=== PATIENT | female | born 1990 | race Caucasian/White ===

== ENCOUNTER 2017-02-07 22:41 | Emergency (ER) | payer MEDICAID ==
[~2017-02-07] VITALS: Ht 167.6 cm; Wt 99.1 kg
[2017-02-07 22:47] VITALS: TEMP 97.4
[2017-02-08 00:16] LABS: BASO % 0.3 % (0.0-2.0); EOS % 0.1 % (0-4.0); GRAN # 10.8 (1.4-6.5); GRAN % 82.2 % (42.2-75.2); HEMOGLOBIN 13.2 g/dl (12.5-16.0); LYMPH # 1.7 (1.2-3.4); LYMPH % 12.6 % (20.0-51.0); MEAN CELL VOLUME 89 fl (80.0-100.0); MEAN CORPUSCULAR HEMOGLOBIN 31 pg (27.0-31.0); MEAN CORPUSCULAR HGB CONC 35 g/dl (33.0-37.0); MONO # 0.5 (0.1-0.6); PLATELET COUNT 224 K/mm3 (130-400); RED BLOOD COUNT 4.26 M/mm3 (4.10-5.30); REDCELL DISTRIBUTION WIDTH-CV 12.6 % (11.5-14.5); WHITE BLOOD COUNT 13.1 K/mm3 (4.8-10.8)
[2017-02-08] MEDS ORDERED: ZOFRAN 4MG T4 MG/TAB PO (02:18)
[2017-02-08] MEDS ORDERED: NORCO 325 MG-51 TAB PO (02:18)
[2017-02-08 02:45] VITALS: BP 121/79; PULSE 94
== END 2017-02-08 02:45 | disposition home or self-care (01) ==
LOC: COL.ER 22:41
PROVIDERS: Emergency Medicine
DX: O26.892 Other specified pregnancy related conditions, second trimester (principal); R10.31 Right lower quadrant pain; Z90.49 Acquired absence of other specified parts of digestive tract; Z3A.23 23 weeks gestation of pregnancy
CPT/HCPCS: J1885; J7030

== ENCOUNTER 2017-04-22 22:09 | Emergency (ER) | payer MEDICAID ==
[~2017-04-22] VITALS: Ht 167.6 cm; Wt 100.0 kg
[~2017-04-22 22:09] MED LIST: NORCO 325 MG-51 TAB PO; ZOFRAN 4MG T4 MG/TAB PO
[2017-04-22 22:13] VITALS: BP 120/82; TEMP 98.8
[2017-04-22 22:36] LABS: COLLECTION METHOD CLEAN CATCH
[2017-04-22 22:50] LABS: MUCOUS Present /lpf; PH 6 (5-8); URINE APPEARANCE Clear; URINE BACTERIA Rare /hpf; URINE BILIRUBIN Negative (NEGATIVE); URINE BLOOD 3+ (NEGATIVE); URINE COLOR Yellow; URINE GLUCOSE Negative (NEGATIVE); URINE KETONE Negative (NEGATIVE); URINE LEUKOCYTE ESTERASE 1+ (NEGATIVE); URINE PROTEIN(semi-quant) Negative (NEGATIVE); URINE RBC >50 /hpf
[2017-04-22 23:20] VITALS: PULSE 99
== END 2017-04-22 23:22 | disposition home or self-care (01) ==
LOC: COL.ER 22:09
PROVIDERS: Nurse Practitioner
DX: O9A.213 Injury, poisoning and certain other consequences of external causes complicating pregnancy, third trimester (principal); S30.0XXA Contusion of lower back and pelvis, initial encounter; O99.333 Smoking (tobacco) complicating pregnancy, third trimester; F17.210 Nicotine dependence, cigarettes, uncomplicated; Z3A.34 34 weeks gestation of pregnancy; Z90.49 Acquired absence of other specified parts of digestive tract; W01.0XXA Fall on same level from slipping, tripping and stumbling without subsequent striking against object, initial encounter; Y92.002 Bathroom of unspecified non-institutional (private) residence as the place of occurrence of the external cause

== ENCOUNTER 2017-05-29 01:17 | Emergency (ER) | payer MEDICAID ==
[~2017-05-29] VITALS: Ht 167.6 cm; Wt 104.5 kg
[2017-05-29 02:04] VITALS: BP 117/60; PULSE 107; TEMP 98
[2017-05-29 02:41] VITALS: TEMP 97
[2017-05-29 03:12] LABS: COLLECTION METHOD CLEAN CATCH
[2017-05-29 03:15] LABS: BASO % 0.5 % (0.0-2.0); EOS % 0.5 % (0-4.0); GRAN # 6.1 (1.4-6.5); GRAN % 72.5 % (42.2-75.2); HEMATOCRIT 37.9 % (37.0-47.0); HEMOGLOBIN 12.8 g/dl (12.5-16.0); LYMPH # 1.6 (1.2-3.4); LYMPH % 18.6 % (20.0-51.0); MEAN CELL VOLUME 90 fl (80.0-100.0); MEAN CORPUSCULAR HEMOGLOBIN 30 pg (27.0-31.0); MEAN CORPUSCULAR HGB CONC 34 g/dl (33.0-37.0); MEAN PLATELET VOLUME 9.9 fl (7.4-10.4); MONO # 0.6 (0.1-0.6); MONO % 6.9 % (1.7-9.3); PLATELET COUNT 226 K/mm3 (130-400); RED BLOOD COUNT 4.23 M/mm3 (4.10-5.30); REDCELL DISTRIBUTION WIDTH-CV 13.4 % (11.5-14.5)
[2017-05-29 03:20] LABS: MUCOUS Present /lpf; PH 6 (5-8); URINE APPEARANCE Hazy; URINE BACTERIA Rare /hpf; URINE BILIRUBIN Negative (NEGATIVE); URINE BLOOD 1+ (NEGATIVE); URINE COLOR Yellow; URINE GLUCOSE Negative (NEGATIVE); URINE KETONE Negative (NEGATIVE); URINE LEUKOCYTE ESTERASE 2+ (NEGATIVE); URINE NITRATE Negative (NEGATIVE); URINE PROTEIN(semi-quant) Negative (NEGATIVE); URINE UROBILINOGEN Negative (NEGATIVE)
[2017-05-29 03:26] LABS: ALBUMIN 3.5 gm/dL (3.5-5.0); BILIRUBIN,TOTAL 0.3 mg/dL (0.0-1.0); C-REACTIVE PROTEIN 3.7 mg/dL (0.0-0.9); CALCIUM 8.8 mg/dL (8.4-10.2); CREATININE, serum 0.47 mg/dL (0.52-1.25); POTASSIUM 3.8 mmol/L (3.4-5.0); TOTAL PROTEIN 6.8 gm/dL (6.4-8.2)
[2017-05-29] MEDS ORDERED: MACROBID 1100 MG/CAP PO (04:24)
[2017-05-29 04:41] VITALS: BP 130/87; PULSE 107
== END 2017-05-29 04:44 | disposition home or self-care (01) ==
LOC: LDRO 01:17 → COL.ER 01:17 → EDSTATUS 02:35 → COL.ER 04:44
PROVIDERS: Emergency Medicine
DX: O23.43 Unspecified infection of urinary tract in pregnancy, third trimester (principal); O99.89 Other specified diseases and conditions complicating pregnancy, childbirth and the puerperium; R10.13 Epigastric pain; O99.513 Diseases of the respiratory system complicating pregnancy, third trimester; Z3A.38 38 weeks gestation of pregnancy; J06.9 Acute upper respiratory infection, unspecified; Z90.49 Acquired absence of other specified parts of digestive tract; O99.333 Smoking (tobacco) complicating pregnancy, third trimester; F17.210 Nicotine dependence, cigarettes, uncomplicated; R19.7 Diarrhea, unspecified

== ENCOUNTER 2017-06-02 06:52 | Inpatient (IN) | payer MEDICAID ==
[2017-06-02] VITALS (32 sets, daily range): BP systolic 90–139; BP diastolic 55–87; PULSE 87–126; TEMP 98–99.3
[~2017-06-02] VITALS: Ht 172.7 cm; Wt 107.3 kg
[~2017-06-02 06:52] MED LIST changes: +MACROBID 1100 MG/CAP PO
[2017-06-02 08:08] LABS: BASO % 0.3 % (0.0-2.0); EOS % 0.3 % (0-4.0); GRAN # 6.4 (1.4-6.5); GRAN % 70.1 % (42.2-75.2); HEMATOCRIT 36.3 % (37.0-47.0); HEMOGLOBIN 12.1 g/dl (12.5-16.0); LYMPH % 22.2 % (20.0-51.0); MEAN CELL VOLUME 90 fl (80.0-100.0); MEAN CORPUSCULAR HEMOGLOBIN 30 pg (27.0-31.0); MEAN CORPUSCULAR HGB CONC 33 g/dl (33.0-37.0); MEAN PLATELET VOLUME 10.3 fl (7.4-10.4); MONO # 0.6 (0.1-0.6); MONO % 6.2 % (1.7-9.3); PLATELET COUNT 230 K/mm3 (130-400); RED BLOOD COUNT 4.04 M/mm3 (4.10-5.30); REDCELL DISTRIBUTION WIDTH-CV 13.2 % (11.5-14.5)
[2017-06-03 07:45] VITALS: BP 118/80; PULSE 92; TEMP 97.6
[2017-06-03] MEDS ORDERED: IBU600 MG PO (09:33)
== END 2017-06-03 16:30 | disposition home or self-care (01) | DRG 774 ==
LOC: LDR 06:52 → OB 06:52 → LDR 07:44 → OB 15:00
PROVIDERS: Obstetrics & Gynecology
PROC: 10E0XZZ Delivery of Products of Conception, External Approach (ICD-10-PCS; principal; 2017-06-02)
PROC: 3E033VJ Introduction of Other Hormone into Peripheral Vein, Percutaneous Approach (ICD-10-PCS; 2017-06-02)
DX: O75.89 Other specified complications of labor and delivery (principal); O98.312 Other infections with a predominantly sexual mode of transmission complicating pregnancy, second trimester; O69.1XX0 Labor and delivery complicated by cord around neck, with compression, not applicable or unspecified; A56.02 Chlamydial vulvovaginitis; O99.334 Smoking (tobacco) complicating childbirth; F17.210 Nicotine dependence, cigarettes, uncomplicated; Z3A.39 39 weeks gestation of pregnancy; Z37.0 Single live birth
CPT/HCPCS: J2400; J2590; J2795; J7120

== ENCOUNTER 2018-07-29 17:15 | Emergency (ER) | payer MEDICAID ==
[~2018-07-29] VITALS: Ht 167.6 cm; Wt 101.7 kg
[~2018-07-29 17:15] MED LIST changes: +IBU600 MG PO
[2018-07-29 17:18] VITALS: TEMP 98.3
[2018-07-29 18:45] LABS: BASO % 0.3 % (0.0-2.0); GRAN # 8.5 (1.4-6.5); GRAN % 90.2 % (42.2-75.2); HEMATOCRIT 40.7 % (37.0-47.0); HEMOGLOBIN 13.9 g/dl (12.5-16.0); LYMPH # 0.6 (1.2-3.4); LYMPH % 6.1 % (20.0-51.0); MEAN CELL VOLUME 88 fl (80.0-100.0); MEAN CORPUSCULAR HEMOGLOBIN 30 pg (27.0-31.0); MEAN CORPUSCULAR HGB CONC 34 g/dl (33.0-37.0); MEAN PLATELET VOLUME 10.1 fl (7.4-10.4); MONO # 0.2 (0.1-0.6); MONO % 2.4 % (1.7-9.3); PLATELET COUNT 235 K/mm3 (130-400); RED BLOOD COUNT 4.65 M/mm3 (4.10-5.30)
[2018-07-29 18:59] LABS: ALBUMIN 3.6 gm/dL (3.5-5.0); BILIRUBIN,TOTAL 0.6 mg/dL (0.0-1.0); CALCIUM 8.7 mg/dL (8.4-10.2); CREATININE, serum 0.41 (0.52-1.25); POTASSIUM 3.4 mmol/L (3.4-5.0); TOTAL PROTEIN 7.2 gm/dL (6.4-8.2)
[2018-07-29] MEDS ORDERED: ZOFRAN ODT4 MG PO (19:48)
[2018-07-29 20:42] VITALS: BP 109/75; PULSE 117
== END 2018-07-29 20:45 | disposition home or self-care (01) ==
LOC: COL.ER 17:15
PROVIDERS: Emergency Medicine
DX: O23.92 Unspecified genitourinary tract infection in pregnancy, second trimester (principal); O26.892 Other specified pregnancy related conditions, second trimester; O99.332 Smoking (tobacco) complicating pregnancy, second trimester; R19.7 Diarrhea, unspecified; F17.210 Nicotine dependence, cigarettes, uncomplicated; Z90.89 Acquired absence of other organs; Z3A.23 23 weeks gestation of pregnancy
CPT/HCPCS: J2405; J2550; J7030

== ENCOUNTER 2018-10-07 12:14 | Outpatient (CLI) | payer MEDICAID ==
[~2018-10-07] VITALS: Ht 17.8 cm; Wt 104.5 kg
[~2018-10-07 12:14] MED LIST changes: +ZOFRAN ODT4 MG PO
[2018-10-07] MEDS ORDERED: PRENATAL FORMU1 EAC3 PO (12:34)
[2018-10-07 12:35] VITALS: BP 121/79; PULSE 122; TEMP 98.6
[2018-10-07 12:40] VITALS: BP 121/79; PULSE 122; TEMP 98.6
--- NOTE | 2018-10-07 12:43 | NUR ---
1225 PT PRESENTS, BAREFOOTED AND COMPLAINING OF BLEEDING THIS MORNING. GOWN ON AND TO BED. MONITORS IN PLACE AND ASSESSMENT STARTED.
[2018-10-07 13:45] VITALS: BP 115/70; PULSE 80
--- NOTE | 2018-10-07 14:37 | NUR ---
1245 PLAN OF CARE DISCUSSED WITH PT AND SO. 1250 DR IZAGUIRRE REACHED CELL PHONE AND STATUS REPORT GIVEN. SVE SHOWED NOT BRIGHT RED BLOOD ON GLOVED HAND NOT ANY SIGNS OF BLOOD ON LABIA OR INNER THIGH. ORDERS FOR MONITORIN AND THEN DISHARGE IF STRIP REACTIVE FOR GESTATIONAL AGE. 1300 PLAN OF CARE DISCUSSED WITH PT AND VERBALIZES UNDERSTANDING.
--- NOTE | 2018-10-07 14:40 | NUR ---
1350 NO CHANGE IN PT STATUS. MONITORS OFF AND ALLOWED TO DRESS AND VOID. 1400 HOME CARE INSTRUCTIONS REVIEWED WITH PT AND SO. SLIPPER SOCKS PROVIDED FOR FEET. VERBALIZES UNDERSTANDING OF HOME CARE INSTRUCTIONS. 1410 DISMISSED AMB TO SELF CARE, KNOWS TO RETURN IF SYMPTOMS PERSISTS OR RETURN.
== END 2018-10-07 14:10 | disposition home or self-care (01) ==
LOC: LDRO 12:14 → LDR 12:25 → LDRO 14:10
DX: O46.93 Antepartum hemorrhage, unspecified, third trimester (principal); Z3A.33 33 weeks gestation of pregnancy
CPT/HCPCS: OP

== ENCOUNTER 2018-11-13 02:45 | Outpatient (CLI) | payer MEDICAID ==
[~2018-11-13] VITALS: Ht 165.1 cm; Wt 106.4 kg
[~2018-11-13 02:45] MED LIST changes: +PRENATAL FORMU1 EAC3 PO
--- NOTE | 2018-11-13 02:55 | NUR ---
Pt arrived on unit ambulatory escorted by boyfriend and with complaints of contractions starting this evening. Pt denies any leaking of fluid, vaginal bleeding and reports normal movement. EFM and toco monitors placed. Vital signs WNL. SVE by this RN 2-/2. Labor assessment orders received. Plan of care for labor assessment reviewed with pt.
[2018-11-13 03:02] VITALS: TEMP 98.3
[2018-11-13 04:00] VITALS: BP 130/85; PULSE 107
--- NOTE | 2018-11-13 04:00 | NUR ---
SVE by this RN with no change 2-/-2. Information reviewed with Dr. Jaquez. We discussed ctx spacing out with oral hydration, FHR tracing and SVE reviewed. Orders for discharge home received. Discharged instructions reviewed with pt and and boyfriend at the bedside. Both verbalized an understanding, agreed with the plan and states no questions or concerns at this time.
== END 2018-11-13 04:25 | disposition home or self-care (01) ==
LOC: LDRO 02:45 → LDR 02:45 → LDRO 04:25
DX: O62.9 Abnormality of forces of labor, unspecified (principal); Z3A.38 38 weeks gestation of pregnancy
CPT/HCPCS: OP

== ENCOUNTER 2018-11-18 13:29 | Inpatient (IN) | payer MEDICAID ==
[2018-11-17 22:22] VITALS: BP 165/93; PULSE 113
[2018-11-17 22:23] VITALS: BP 163/76; PULSE 105
[2018-11-18] VITALS (26 sets, daily range): BP systolic 114–177; BP diastolic 60–95; PULSE 99–131; TEMP 97.3–98.9
[~2018-11-18] VITALS: Ht 165.1 cm; Wt 105.0 kg
--- NOTE | 2018-11-18 13:20 | NUR ---
1320-39.1 Ambulatory to TR-1 with complaints of irregular contractions since 0100, denies LOF or VB. Reports Good FM. 1329-Patient on EFM, Assessment complete. 1335-SVE /3. Updated on plan of care.
--- NOTE | 2018-11-18 14:15 | NUR ---
1415-Late variable decel in FHR down to 100bpm wit spontaneous return to baseline. 1426-SVE /-3 with BB. Candy GUZMAN on unit.
--- NOTE | 2018-11-18 14:20 | NUR ---
1420-Dr. Gallo on unit, reviews FHR monitor. Orders to continue to monitor at this time.
--- NOTE | 2018-11-18 14:45 | NUR ---
1445- Reviews FHR monitor. Orders to monitor and recheck at 1530. If no change and continued reactive strip patient may discharge home per Dr. Gallo.
--- NOTE | 2018-11-18 15:35 | NUR ---
1535-SVE 2, Updated Dr. Gallo who remains on unit. Orders to admit patient and plan for AROM. Updated patient on plan of care. Denies questions. 1630-IV to Right hand, blood collected and sent to lab per orders. Ambulated patient to LR 5. Oriented to room.LR per MD orders and protocol. 1641-Patient requests epidural. Dr. Vides who is assuming care of patient notified. Order for epidural obtained. CANDIS Gibbons notified.
[2018-11-18 16:27] LABS: BASO % 0.3 % (0.0-2.0); EOS % 0.2 % (0-4.0); GRAN # 6.8 (1.4-6.5); GRAN % 74.5 % (42.2-75.2); HEMATOCRIT 37.3 % (37.0-47.0); HEMOGLOBIN 12.4 g/dl (12.5-16.0); LYMPH # 1.8 (1.2-3.4); LYMPH % 19.2 % (20.0-51.0); MEAN CELL VOLUME 87 fl (80.0-100.0); MEAN CORPUSCULAR HEMOGLOBIN 29 pg (27.0-31.0); MEAN CORPUSCULAR HGB CONC 33 g/dl (33.0-37.0); MEAN PLATELET VOLUME 9.8 fl (7.4-10.4); MONO # 0.5 (0.1-0.6); MONO % 5.1 % (1.7-9.3); PLATELET COUNT 252 K/mm3 (130-400); RED BLOOD COUNT 4.27 M/mm3 (4.10-5.30); REDCELL DISTRIBUTION WIDTH-CV 13.5 % (11.5-14.5)
--- NOTE | 2018-11-18 16:50 | NUR ---
165-CANDIS Gibbons to patient room. Patient sitting on bedside for epidural placement. 1657-SS administered by CANDIS Gibbons, patient tolerated well, VSS see flow record. Repositoned WL. 172-Kerr to DD, Clear yellow urine return. SVE unchanged. Eliza care provided. Repositioned back WL. 182-Reported off to. Peyton HUDDLESTON.
--- NOTE | 2018-11-18 19:30 | NUR ---
[facility]AN[facility] ROBBIE OSORIO REPORT TO DR SANDOVAL
--- NOTE | 2018-11-18 20:30 | NUR ---
DR BAIG PASTFABIOLA AT BEDSIDE FOR DELIVERY. PT STRONGLY ENC TO PUSH. POOR EFFORT. CONTINUOED COACHING RICARDO HUDDLESTON AND 2036 MALE. TO WARMER PER MOTHER REQUEST
--- NOTE | 2018-11-18 22:40 | NUR ---
UNABLE TO STAND STEADY DUE TO LEG CRAMPS- TO 219 PER WC. SANWICH PROVIDED. BABY IN NSY FOR BATH WHILE TRNSFERING
[2018-11-19 02:00] VITALS: BP 130/84; PULSE 120; TEMP 97.7
--- NOTE | 2018-11-19 03:09 | NUR ---
HR-120. ASYMPTOMATIC.FUNAL CHECK WNL.SMALL CLOTS WHEN UP TO VOID. AMBULATORY WITHOUT DIZZYNESS,STEADYGAIT. INDEPENDENT CARING FOR BABY
[2018-11-19 05:00] VITALS: BP 115/72; PULSE 90; TEMP 98.1
[2018-11-19 07:15] VITALS: BP 116/54; PULSE 89; TEMP 97.6
[2018-11-19 11:10] VITALS: BP 122/76; PULSE 96; TEMP 97.8
[2018-11-19 16:20] VITALS: BP 140/87; PULSE 101; TEMP 97.8
[2018-11-19 20:24] VITALS: BP 135/76; PULSE 100; TEMP 98.2
[2018-11-20 07:15] VITALS: BP 139/84; PULSE 84; TEMP 98.5
[2018-11-20] MEDS ORDERED: IBU800 M1 PO (09:35)
== END 2018-11-20 12:00 | disposition home or self-care (01) | DRG 807 ==
LOC: LDRO 13:29 → LDR 15:45 → OB 22:45
PROVIDERS: ADMIT Obstetrics & Gynecology
PROC: 10E0XZZ Delivery of Products of Conception, External Approach (ICD-10-PCS; principal; 2018-11-18)
PROC: 3E0S3BZ Introduction of Anesthetic Agent into Epidural Space, Percutaneous Approach (ICD-10-PCS; 2018-11-18)
PROC: 10907ZC Drainage of Amniotic Fluid, Therapeutic from Products of Conception, Via Natural or Artificial Opening (ICD-10-PCS; 2018-11-18)
DX: O99.214 Obesity complicating childbirth (principal); Z37.0 Single live birth; E66.9 Obesity, unspecified; O99.334 Smoking (tobacco) complicating childbirth; Z3A.39 39 weeks gestation of pregnancy; O99.344 Other mental disorders complicating childbirth; F32.9 Major depressive disorder, single episode, unspecified; F17.200 Nicotine dependence, unspecified, uncomplicated
CPT/HCPCS: J2590; J2795; J7120

== ENCOUNTER 2019-11-22 03:42 | Inpatient (IN) | payer MEDICAID ==
[2019-11-22] VITALS (26 sets, daily range): BP systolic 130–183; BP diastolic 64–989; PULSE 76–111; TEMP 97.7–98.7
[~2019-11-22] VITALS: Ht 167.6 cm; Wt 106.4 kg
--- NOTE | 2019-11-22 03:35 | NUR ---
G7L4. 38-2. Ambulatory to LDR 4. Clean gown on. EFM and TOCO explained and applied. Pt states she woke up to her water breaking at 0230 and since then there has been "gushes", clear fluid noted. Pt denies contractions. Pt report pink tinged discharge earlier today but no other vaginal bleeding. Reports good movement. Amniotest +. SVE /-2. 0400: notified. See physican notification. Plan of care explained to pt. Pt denies any questions at this time. 0420: IV started and labs obtained via IV site. LR bolus infusing without difficulties. Call light within reach.
[~2019-11-22 03:42] MED LIST changes: +IBU800 M1 PO
[2019-11-22] MEDS ORDERED: PRENATAL MVI PO (03:53)
[2019-11-22 04:45] LABS: BASO % 0.3 % (0.0-2.0); EOS % 0.5 % (0-4.0); GRAN % 68.4 % (42.2-75.2); HEMATOCRIT 33.7 % (37.0-47.0); HEMOGLOBIN 11.1 g/dl (12.5-16.0); LYMPH # 1.8 (1.2-3.4); MEAN CELL VOLUME 87 fl (80.0-100.0); MEAN CORPUSCULAR HEMOGLOBIN 29 pg (27.0-31.0); MEAN CORPUSCULAR HGB CONC 33 g/dl (33.0-37.0); MEAN PLATELET VOLUME 9.9 fl (7.4-10.4); MONO # 0.5 (0.1-0.6); MONO % 6.3 % (1.7-9.3); PLATELET COUNT 239 K/mm3 (130-400); RED BLOOD COUNT 3.88 M/mm3 (4.10-5.30); REDCELL DISTRIBUTION WIDTH-CV 13.9 % (11.5-14.5)
[2019-11-22 05:53] LABS: TRICYCLIC ANTIDEPRESS URINE NEGATIVE
--- NOTE | 2019-11-22 09:05 | NUR ---
PATIENT SITTING AT EDGE OF BED FOR EPIDURAL- TRACING HEART TONES AND MATERNAL PULSE SAME [phone] IZAGUIRRE AT 0905. TO MOTHERS CHEST IN CARE OF CHITO BENNETT RN. DR IZAGUIRRE CUT CORD. PLACENTA SPON DELIVERED AT 0910. PITOCIN AT 333 MLS/ HR. FUNDAL MASSAGE PROVIDED BY DR IZAGUIRRE. PERINEUM INTACT. ICE PACK TO PERINEUM. RECOVERY STARTED AT 0915 WARM BLANKET PROVIDED
--- NOTE | 2019-11-22 14:36 | NUR ---
1115PATIENT VERY SLEEPY AT THIS TIME. PATIENT STATES SHE FEELS LIKE HER LEFT LEG IS STILL NUMB. 1145 PATIENT STATES THAT SHE FEELS THAT HER LEG IS STILL NUMB AND DOESN'T THINK SHE IS ABLE TO WALK. 1215 PATIENT STATES THAT SHE THINKS SHE CAN WALK. PATIENT ATTEMPTED TO STAND AT BEDSIDE WITH ASSISTANCE OF THIS RN AND Narendra FERMIN RN. PATIENT UNABLE TO REMAIN STANDING. PATIENT SAFETLY ASSISTED BACK TO SITTING POSITION IN BED. WILL CONTINUE TO ASSESS. PATIENT STRAIGHT CATH AT THIS TIME. PATIENT TOLERATED WELL.
--- NOTE | 2019-11-22 14:39 | NUR ---
1300 PATIENT VERY TIRED AND NOT WANTING TO ATTEMPT TO WALK. STATES THAT LEG FEELS THE SAME PREVIOUSLY. 1415 PATIENT STATES THAT HER LEGS FEEL MUCH BETTER AND THINKS SHE CAN ATTEMPT TO WALK AGAIN. THIS RN AND Kiera LANDON RN ASSISTED PATIENT. PATIENT ABLE TO MAINTAIN BALANCE AND STATES SHE FEELS GOOD WALKING. PATIENT ASSISTED TO BATHROOM AT THIS TIME.
[2019-11-23 08:30] VITALS: BP 136/89; PULSE 86; TEMP 98.3
[2019-11-23] MEDS ORDERED: IBU600 MG PO (09:29)
--- NOTE | 2019-11-23 10:20 | NUR ---
Initial visit; Mom thanked Engineering Inspection Assistant for offering congratulations and God's blessings for the of her son. Engineering Inspection Assistant thanked patient for choosing [facility].
== END 2019-11-23 13:50 | disposition home or self-care (01) | DRG 807 ==
LOC: LDRO 03:42 → OB 04:07 → LDR 04:07 → OB 14:30
PROVIDERS: ADMIT Student in an Organized Health Care Education/Training Program
PROC: 10E0XZZ Delivery of Products of Conception, External Approach (ICD-10-PCS; principal; 2019-11-22)
DX: O99.214 Obesity complicating childbirth (principal); Z37.0 Single live birth; E66.9 Obesity, unspecified; Z3A.38 38 weeks gestation of pregnancy
CPT/HCPCS: J2590; J2795; J7120

== ENCOUNTER 2020-10-05 01:49 | Outpatient (CLI) | payer MEDICAID ==
[~2020-10-05] VITALS: Ht 170.2 cm; Wt 110.5 kg
[~2020-10-05 01:49] MED LIST changes: +PRENATAL MVI PO
--- NOTE | 2020-10-05 02:00 | NUR ---
0200- patient ambulatory to our unit by herself. patient orientated to room and changed into clean gown. patient report gfm, no ctx, no bleeding and leaking urine when she coughs. patient reports pelvic and back pain when she coughs. 0206- efm and toco on and tracing. vitals taken, assessment completed. 0220-provider publications designer on the unit and discussed patient with her. patient is a and 33.3 today. reports traveling to [place] last week and started coughing a day or so ago. patient is afrebile. provider gave verbal orders to start an IV, give 500 bolus and then 125/hr. draw cbc, cmp, rapid covid swab, ua and then give tessalon pearls and robotussin. if all labs are fine and she has taken her meds and got her fluids patient can go home. if labs are really out of range then give me a call. provider went to publications designer room.
[2020-10-05] MEDS ORDERED: ZOLOFT 25MG25 MG PO (02:20)
[2020-10-05] MEDS ORDERED: CEPHALEXIN500 M1 PO (02:20)
[2020-10-05 03:10] VITALS: BP 119/77; PULSE 133; TEMP 98.9
[2020-10-05 03:15] LABS: BASO % 0.2 % (0.0-2.0); EOS % 0.1 % (0-4.0); GRAN % 78.9 % (42.2-75.2); HEMOGLOBIN 11.4 g/dl (12.5-16.0); LYMPH # 1.1 (1.2-3.4); LYMPH % 12.3 % (20.0-51.0); MEAN CELL VOLUME 85 fl (80.0-100.0); MEAN CORPUSCULAR HEMOGLOBIN 29 pg (27.0-31.0); MEAN CORPUSCULAR HGB CONC 34 g/dl (33.0-37.0); MEAN PLATELET VOLUME 9.7 fl (7.4-10.4); MONO # 0.7 (0.1-0.6); MONO % 7.5 % (1.7-9.3); PLATELET COUNT 265 K/mm3 (130-400); RED BLOOD COUNT 3.96 M/mm3 (4.10-5.30); REDCELL DISTRIBUTION WIDTH-CV 13.2 % (11.5-14.5)
[2020-10-05 03:18] LABS: HEMATOCRIT 33.7 % (37.0-47.0)
[2020-10-05 03:20] LABS: COLLECTION METHOD CLEAN CATCH
[2020-10-05 03:26] LABS: ALBUMIN 3.4 gm/dL (3.5-5.0); BILIRUBIN,TOTAL 0.4 mg/dL (0.0-1.0); CALCIUM 8.6 mg/dL (8.4-10.2); CREATININE, serum 0.43 (0.52-1.25); POTASSIUM 3.2 mmol/L (3.4-5.0); TOTAL PROTEIN 6.9 gm/dL (6.4-8.2)
[2020-10-05 03:30] LABS: MUCOUS Present /lpf; PH 7 (5-8); URINE APPEARANCE Clear; URINE BACTERIA Rare /hpf; URINE BILIRUBIN Negative (NEGATIVE); URINE BLOOD 1+ (NEGATIVE); URINE COLOR Yellow; URINE GLUCOSE Negative (NEGATIVE); URINE KETONE Negative (NEGATIVE); URINE LEUKOCYTE ESTERASE Trace (NEGATIVE); URINE NITRATE Negative (NEGATIVE); URINE PROTEIN(semi-quant) Negative (NEGATIVE); URINE RBC 0-2 /hpf
[2020-10-05 03:56] VITALS: BP 133/82; PULSE 118
== END 2020-10-05 04:05 | disposition home or self-care (01) ==
LOC: LDRO 01:49
PROVIDERS: Obstetrics & Gynecology
DX: O62.9 Abnormality of forces of labor, unspecified (principal); Z3A.33 33 weeks gestation of pregnancy
CPT/HCPCS: J7120

== ENCOUNTER 2020-11-11 20:00 | Outpatient (CLI) | payer MEDICAID ==
[~2020-11-11] VITALS: Ht 170.2 cm; Wt 111.4 kg
[~2020-11-11 20:00] MED LIST changes: +CEPHALEXIN500 M1 PO; +ZOLOFT 25MG25 MG PO
--- NOTE | 2020-11-11 20:10 | NUR ---
Ambulatory to unit for labor assessment, accompanied by spouse. Pt reports cramping and pressure off and on since "about 8 this morning", "a little more about this evening". Denies loss of fluid or vaginal bleeding. Plan of care reviewed with pt. Covid questions asked. has not had vaccines, has not been in contact with known Covid positive, had negative Covid swab < 1 month ago, no Covid symptoms identified. Covid rapid swab obtained. Will continue in isolation until Covid swab results obtained. Pt and spouse verbalize understanding. SVE with no change since office exam 11/05.
[2020-11-11 20:30] VITALS: BP 149/77; PULSE 115; TEMP 98.9
--- NOTE | 2020-11-11 21:20 | NUR ---
off monitor up to void. Will repeat SVE when Covid results come back.
[2020-11-11 21:25] VITALS: BP 136/75; PULSE 111; PULSE 16; TEMP 98.2
--- NOTE | 2020-11-11 21:50 | NUR ---
Repeat SVE with no changes noted. Covid results negative.
== END 2020-11-11 22:10 | disposition home or self-care (01) ==
LOC: LDR 20:00 → LDRO 20:00 → COL.ER 20:00 → EDSTATUS 20:02 → LDRO 22:10
DX: O26.899 Other specified pregnancy related conditions, unspecified trimester (principal); R25.2 Cramp and spasm; Z3A.38 38 weeks gestation of pregnancy
CPT/HCPCS: OP

== ENCOUNTER → 2020-11-16 | Outpatient (CLI) | payer MEDICAID ==
[~2020-11-16] VITALS: Ht 165.1 cm; Wt 110.5 kg
[2020-11-16 02:40] VITALS: BP 134/80; PULSE 109; TEMP 98
--- NOTE | 2020-11-16 06:17 | NUR ---
DR. HUTCHINSON UPDATED ON UNCHANGED CERVICAL EXAM AND IRREGULAR CONTRACTIONS. PATIENT WILL DISCHARGE HOME PER DR. THORNE ORDERS.
== END ==
LOC: LDRO 01:01 → LDR 01:32 → LDRO 01:32
DX: O62.9 Abnormality of forces of labor, unspecified (principal); Z3A.39 39 weeks gestation of pregnancy

== ENCOUNTER 2020-11-17 01:28 | Inpatient (IN) | payer MEDICAID ==
[~2020-11-17] VITALS: Wt 110.5 kg
[2020-11-17] VITALS (35 sets, daily range): BP systolic 88–148; BP diastolic 52–92; PULSE 92–133; TEMP 97.7–98.4
--- NOTE | 2020-11-17 01:35 | NUR ---
0135- PATIENT AMBULATORY TO THE UNIT WITH MOTHER IN LAW/SUPPORT PERSON BY HER SIDE. PATIENT REPORTS GFM, NO LOF AND SOME BLOODY DISCHARGE. PATIENT PRESENTS WITH CONTRACTIONS THAT ARE GETTING MORE INTENSE. 0140- EFM AND TOCO ON AND TRACING. VITALS TAKEN, ASSESSMENT COMPLETED. PATIENT SVE 6-7/90/-2 WITH A BULGY BAG. CALLED PROVIDER, SEE PHYSICIAN NOTIFICATION.
[2020-11-17 02:33] LABS: BASO % 0.3 % (0.0-2.0); EOS % 0.4 % (0-4.0); GRAN # 7.2 (1.4-6.5); GRAN % 72.1 % (42.2-75.2); HEMOGLOBIN 11.3 g/dl (12.5-16.0); LYMPH # 2.1 (1.2-3.4); MEAN CELL VOLUME 85 fl (80.0-100.0); MEAN CORPUSCULAR HEMOGLOBIN 28 pg (27.0-31.0); MEAN CORPUSCULAR HGB CONC 33 g/dl (33.0-37.0); MEAN PLATELET VOLUME 9.4 fl (7.4-10.4); MONO # 0.6 (0.1-0.6); MONO % 5.6 % (1.7-9.3); PLATELET COUNT 324 K/mm3 (130-400); RED BLOOD COUNT 4.08 M/mm3 (4.10-5.30); REDCELL DISTRIBUTION WIDTH-CV 13.9 % (11.5-14.5)
[2020-11-17 02:38] LABS: HEMATOCRIT 34.6 % (37.0-47.0)
--- NOTE | 2020-11-17 08:44 | NUR ---
0844- SVE by this RN C/0. Dr. Solis at nurses desk and notified. 0850- Dr. Solis to bedside. Patient repositioned in footplates. 0854- Patient begins to push with contractions with Dr. Solis at bedside. Moves vertex well. 0856- Spontaneous vaginal delivery of viable male . Nares and mouth bulb suctioned by Dr. Solis. To mother's chest where dried and stimulated by nursery RN. Pitocin paused. 0858- Cord clamped x2 and cut by Dr. Solis. Care of assumed by Shane Law RN. 0903- Spontaneous and intact delivery of placenta. Pitocin resumed at 333ml/hr per protocol. Fundus firm, midline, and bleeding minimal. Perineum intact. Per care provided, pads changed, and ice pack to perineum. Plan of care and safety precautions reviewed. See doctor dictation, anesthesia record, and nurses notes.
--- NOTE | 2020-11-17 11:30 | NUR ---
Patient to edge of bed. Denies lighteadedness or dizziness. Epidural catheter removed, see record. Assisted to stand by edge of bed with assist x2. Unable to bear weight to left leg. Pivot to wheelchair. To room 208. Clean gown on. Eliza pads changed. Oriented to room and POC. Safety precautions reviewed, pt verbalizes understanding. Resting with call light within reach.
[2020-11-18 00:30] VITALS: BP 130/72; PULSE 77; TEMP 97.8
[2020-11-18 03:21] VITALS: BP 136/80; PULSE 89; TEMP 97.8
[2020-11-18 07:20] VITALS: BP 136/85; PULSE 78; TEMP 97.2
[2020-11-18] MEDS ORDERED: IBU600 MG PO (08:33)
--- NOTE | 2020-11-18 12:39 | NUR ---
Initial visit; Patient thanked Ultrasonic Welding Machine Operator for offering congratulations for the of her son. Ultrasonic Welding Machine Operator thanked patient for choosing [facility].
--- NOTE | 2020-11-18 13:04 | NUR ---
1115 DISCHARGE INSTRUCTIONS REVIEWED WITH PATIENT. PATIENT VERBALIZED UNDERSTANDING. 1150 ALL PERSONAL BELONGINGS GATHERED FROM PATIENT ROOM. PATIENT LEFT AMBULATORY AND IN NO APPARENT DISTRESS. PATIENT ACCOMPANIED BY SUPPORT PERSON AND NURSING STAFF.
== END 2020-11-18 11:50 | disposition home or self-care (01) | DRG 807 ==
LOC: LDRO 01:28 → LDR 01:58 → OB 11:30
PROVIDERS: Obstetrics & Gynecology; ADMIT Obstetrics & Gynecology
PROC: 10E0XZZ Delivery of Products of Conception, External Approach (ICD-10-PCS; principal; 2020-11-17)
DX: O99.344 Other mental disorders complicating childbirth (principal); Z37.0 Single live birth; F32.9 Major depressive disorder, single episode, unspecified; F41.9 Anxiety disorder, unspecified; O99.214 Obesity complicating childbirth; O99.333 Smoking (tobacco) complicating pregnancy, third trimester; Z3A.39 39 weeks gestation of pregnancy
CPT/HCPCS: J2590; J7120